=== PATIENT | male | born 1975 | race Caucasian/White ===

== ENCOUNTER 2023-08-10 15:32 | Emergency (ER) | payer OTHER ==
[2023-08-10] MEDS ORDERED: Lidocaine 1% 5 ML VIAL INJECT ONE (16:00)
[2023-08-10] MEDS ORDERED: Bacitracin Oint 1 GM U/D Packet TOP ONE (17:08)
== END 2023-08-10 16:40 | disposition home or self-care (01) ==
LOC: LB.ED 15:32
DX: S60.450A Superficial foreign body of right index finger, initial encounter (principal); S60.351A Superficial foreign body of right thumb, initial encounter; W45.8XXA Other foreign body or object entering through skin, initial encounter
CPT/HCPCS: 99283